=== PATIENT | male | born 1995 | race Caucasian/White ===

== ENCOUNTER 2017-08-27 22:02 | Inpatient (IN) | payer SELFPAY ==
[~2017-08-27] VITALS: Ht 188 cm; Wt 156.6 kg
--- NOTE | ~2017-08-27 | PR ---
[place], [place] PROGRESS NOTE NAME: [facility]ES [facility]: [id number] UNIT #: [id number] ROOM: 404 DOCTOR: KARELY LY,DECEMBER BIRTHDATE: [birth year] DOS: SUBJECTIVE: The patient is being followed for possibly a viral exanthem, fevers, rash. He also had dysuria. His UA had some pyuria, but the urine culture is negative. Blood cultures are negative. His STD workup is pending. His temps have significantly improved. His max has been 99.7 in the last 24 hours. He is alert and oriented, feeling well. The rash has significantly improved from yesterday. Denies any nausea, vomiting or diarrhea. No pain. No cough or shortness of breath. His chest x-ray is clear. LABORATORY DATA: Show WBC is 9.3, platelets 248. BUN 10, creatinine 0.7, AST 41, ALT 126. CURRENT MEDICATIONS: Include Rocephin, Motrin, vitamin D, Lovenox, Restoril, Tylenol, milk of mag. PHYSICAL EXAMINATION: VITAL SIGNS: Temperature 99.7, pulse 98, respirations 18, BP 142/85. GENERAL: A 22-year-old obese male, in no acute distress. HEAD, EYES, EARS, NOSE AND THROAT: Normocephalic. No thrush. LUNGS: Clear to auscultation bilaterally. Respirations even and unlabored. HEART: Regular rhythm. No murmur appreciated. ABDOMEN: Soft, nontender. EXTREMITIES: No edema or deformity. SKIN: Rash has significantly improved. It was nonpruritic. ASSESSMENT: I would suspect viral syndrome given his lab work, elevated LFTs, rash and persistent fevers. He has significantly improved. His LFTs are improving. His blood cultures are negative. Fevers are improving. Rash is improving and he can be discharged. We are going to fashion him off with doxycycline due to his complaints of dysuria in the case of possible sexually transmitted disease. His workup for gonorrhea, chlamydia, his titers for Gabriella-Waterman, mycoplasma are pending. I did advise him he could follow up in 1-2 weeks regarding final results of his workup. His human immunodeficiency virus and hepatitis were negative. I also gave him contact information if he goes home and has any issues with recurrence of fevers, etc. DECEMBER MALACHI CALI [place], [place] PROGRESS NOTE NAME: RADHA CACERES UNIT #: [id number] ROOM: 404 DOCTOR: KARELY LY,DECEMBER BIRTHDATE: [birth year] LIZA DIXON MD CM:PNREGGIE 07 19 KARELY LY 09/01/17 2448 interface
--- NOTE | ~2017-08-27 | PR ---
[place], [place] PROGRESS NOTE NAME: RADHA CACERES UNIT #: [id number] ROOM: 404 DOCTOR: KARELY LY,DECEMBER BIRTHDATE: [birth year] DOS: 08/30/2017 SUBJECTIVE: The patient continues to run fevers. He was 101.8 yesterday afternoon, although they are trending down. He was 99.6 last night. His hepatitis and HIV are negative. He does still have little occasional burning with urination at the end of urination, but that has improved. He has no penile discharge, no pain anywhere else currently. He does have a systemic rash which he states he had for approximately 3 days prior to admission that he states started with the fevers. He have little nausea, no emesis, no diarrhea. No pleuritis. No cough or shortness of breath. No joint pain or swelling. No sore throat. No headache currently, though he did have one before he came in. States his family or girlfriend have not been sick. Further review of systems is unremarkable. LABORATORY DATA: WBCs 10.9, platelets 196, sed rate of 60, BUN 8, creatinine 0.78, AST 46, ALT 220. CRP 9.11. HIV is nonreactive. Hepatitis is negative. Chlamydia, gonorrhea and Trichomonas are negative. CT of his abdomen and pelvis was unremarkable other than for fatty liver. Blood and urine cultures are negative. His UA had bilirubin and WBC 16-20, but leukocyte esterase only trace, negative for nitrites. CURRENT MEDICATIONS: Include Rocephin, he is status post a dose of Zithromax, Motrin, vitamin D, Lovenox, Restoril, Zofran, milk of mag, Dulcolax. PHYSICAL EXAMINATION: VITAL SIGNS: Temperature 99.6, pulse 102, respirations 18, BP 136/58. GENERAL: A 22-year-old obese male in no acute distress, nontoxic in appearance. HEAD, EYES, EARS, NOSE AND THROAT: Normocephalic, no thrush. No cervical lymphadenopathy. NECK: Supple. LUNGS: Clear to auscultation bilaterally. Respirations are even and unlabored. HEART: Regular rhythm. No murmur appreciated. ABDOMEN: Soft, obese, nontender. GENITALIA: Unremarkable. No discharge, swelling or erythema. Has a little tinea of the inguinal folds. EXTREMITIES: No edema or deformity. SKIN: Warm and dry. Does have faint pink rash over all extremities and abdomen, nonpruritic. ASSESSMENT: Fever and rash and transaminitis in a young male with urinary symptoms, not very impressive urinalysis. He currently is receiving Rocephin. He is status post Zithromax. PLAN: We will continue the Rocephin for now. Follow up on the rest of his cultures and workup and check a mono spot. After reviewing the chart and labs, I agree with the above plans as described. We will follow the patient up clinically and adjust accordingly. [place], [place] PROGRESS NOTE NAME: RADHA CACERES UNIT #: [id number] ROOM: 404 DOCTOR: KARELY LYDECEMBER BIRTHDATE: [birth year] JANEY CALI CNP CAPO BEE DO CM:PNREGGIE [id number] JANEY KARELY LY 08/31/17 1009 interface
--- NOTE | ~2017-08-27 | PR ---
[place], [place] PROGRESS NOTE NAME: [facility] [id number] UNIT #: [id number] ROOM: 404 DOCTOR: KARELY LY,DECEMBER BIRTHDATE: [birth year] DOS: SUBJECTIVE: The patient is being followed for fever. His dysuria has completely resolved. He continues to run intermittent low-grade temps up to 100.2 and 100.9. He has systemic rash which he states he hurts if anyone presses on it, but it is nonpruritic. He remains on Rocephin for possible STD. His workup for Neisseria and chlamydia is pending as is his RPR. He does have elevated transaminases, which are improving. He had severe hepatic steatosis on his CT of the abdomen and pelvis. White count is 10. Blood cultures and urine cultures negative. CURRENT MEDICATIONS: Include Rocephin, Motrin, vitamin D, Lovenox, Restoril, Zofran. LABORATORY DATA: Hemoglobin 10.5, platelets 235. BUN 10, creatinine 0.84. AST 31, ALT 145. No nausea, vomiting or diarrhea. He does also have some headache, but the fevers, which has improved. He is complaining of generalized achiness. I did discuss with the patient regarding his sexual habits. He does masturbate using a toy which he states he cleans every time with antibacterial and he rinses well and does not use any other possible chemical irritants that could contribute to his dysuria. PHYSICAL EXAMINATION: VITAL SIGNS: Temperature 99.5, pulse 96, respirations 18, BP 135/68. GENERAL: A 22-year-old obese male, in no acute distress, nontoxic in appearance. HEAD, EYES, EARS, NOSE AND THROAT: Normocephalic. No thrush. NECK: No cervical lymphadenopathy. Neck is supple. LUNGS: Clear to auscultation bilaterally. Respirations even and unlabored. HEART: Regular rhythm. No murmur appreciated. ABDOMEN: Soft, mild generalized tenderness, positive bowel sounds. EXTREMITIES: No edema or deformity. SKIN: Warm, dry, flushed. He does have an erythematous rash over upper and lower extremities, nonpleuritic ASSESSMENT: Fever, accompanied by dysuria, dysuria has resolved. Temps are more low grade, possibly viral exanthem with fever versus sexually transmitted disease. Gonorrhea, chlamydia and RPR are pending. I would also check a respiratory viral panel. He does have a little upper airway congestion and he complains of generalized myalgias. We will also check an influenza screen IgM for CMV, mycoplasma. Case was discussed with Dr. Liza Dixon. We will also check Gabriella-Waterman, continue the Rocephin for now. ADDENDUM We agree with the above plans as described above. We will follow the patient up clinically and adjust accordingly. [place], [place] PROGRESS NOTE NAME: RADHA CACERES UNIT #: [id number] ROOM: 404 DOCTOR: KARELY LYDECEMBER BIRTHDATE: [birth year] DECEMBER MALACHI CALI LIZA DIXON MD CM:PNREGGIE [id number] DECEMBER KARELY LY 09/01/17 0148 interface
[2017-08-27 22:18] VITALS: BP 144/78
[2017-08-27 22:49] LABS: BILIRUBIN 2+ (NEGATIVE); BLOOD NEGATIVE (NEGATIVE); CLARITY SL CLOUDY (CLEAR); COLOR ORANGE (YELLOW); GLUCOSE NEGATIVE (NEGATIVE); KETONE 3+ (NEGATIVE); NITRITE NEGATIVE (NEGATIVE); PH 5.5 (5.0-9.0); SPECIFIC GRAVITY 1.025 (1.005-1.030); UROBILINOGEN >= 8.0 E.U./dl (0.2-1.0)
[2017-08-27 22:55] LABS: LEUKO ESTERASE TRACE (NEGATIVE)
[2017-08-27 22:56] LABS: BACTERIA 1+; MUCOUS 2+
[2017-08-27 22:57] LABS: WBC 16-20 wbc/hpf (0-5)
[2017-08-27 23:27] LABS: BASO % 0.4 % (0.0-1.0); EOS # 0.2 10*3/uL (0.0-0.4); EOS % 1.9 % (1.0-4.0); HEMATOCRIT 39.7 % (42.0-52.0); HEMOGLOBIN 13.6 g/dl (14.0-18.0); LYMPH # 1.1 10*3/uL (1.3-4.4); LYMPH % 10.5 % (27.0-41.0); MEAN CELL VOLUME 85.2 fl (80.0-94.0); MEAN CORPUSCULAR HGB 29.2 pg (27.0-31.0); MEAN CORPUSCULAR HGB CONC 34.3 g/dl (33.0-37.0); MONO # 0.8 10*3/uL (0.1-1.0); NEUT # 8.5 10*3/uL (2.3-7.9); PLATELET COUNT AUTOMATED 223 10*3/uL (130-400); RED BLOOD COUNT 4.66 10*6/uL (4.50-5.90); WHITE BLOOD COUNT 10.6 10*3/uL (4.8-10.8)
--- NOTE | 2017-08-27 23:31 | NUR ---
PT STATES THAT NO "CILLIN" MEDICATION ARE EFFECTIVE FOR HIM. DR. MANCIA NOTIFIED.
[2017-08-27 23:42] LABS: ALBUMIN 3.8 gm/dl (3.1-4.5); ALKALINE PHOSPHATASE 108 U/L (45-117); BUN 8 mg/dl (7-24); CHLORIDE 101 mmol/L (98-107); CREATININE 0.93 mg/dL (0.70-1.30); POTASSIUM 3.1 mmol/L (3.5-5.1); SGOT/AST 207 IU/L (3-35); SGPT/ALT 502 U/L (12-78); SODIUM 137 mmol/L (136-145); TOTAL PROTEIN 7.6 gm/dL (6.4-8.2)
[2017-08-28 00:10] VITALS: BP 132/75
[2017-08-28 01:05] VITALS: BP 111/92
--- NOTE | 2017-08-28 01:05 | NUR ---
Time: 104 A 22 year old MALE admitted to 4E under services of CAPO WEBBER DO. Pt. arrived via stretcher from ER. Chief complaint: PAINFUL URINATION. MANJINDER MCDANIEL
[2017-08-28 07:24] LABS: BASO % 0.4 % (0.0-1.0); EOS # 0.3 10*3/uL (0.0-0.4); EOS % 2.9 % (1.0-4.0); HEMATOCRIT 37.4 % (42.0-52.0); HEMOGLOBIN 12.9 g/dl (14.0-18.0); LYMPH # 0.7 10*3/uL (1.3-4.4); MEAN CELL VOLUME 85.2 fl (80.0-94.0); MEAN CORPUSCULAR HGB 29.4 pg (27.0-31.0); MEAN CORPUSCULAR HGB CONC 34.5 g/dl (33.0-37.0); MEAN PLATELET VOLUME 10.3 fl (9.6-12.3); MONO # 0.6 10*3/uL (0.1-1.0); MONO % 7.3 % (3.0-9.0); NEUT # 6.9 10*3/uL (2.3-7.9); NEUT % 81.2 % (47.0-73.0); PLATELET COUNT AUTOMATED 178 10*3/uL (130-400); RED BLOOD COUNT 4.39 10*6/uL (4.50-5.90); WHITE BLOOD COUNT 8.5 10*3/uL (4.8-10.8)
[2017-08-28 07:30] VITALS: BP 128/70
--- NOTE | 2017-08-28 07:45 | NUR ---
ASSESSMENT COMPLETED AND DOCUMENTED.PT SITTING IN BED EATING BREAKFAST. TYLENOL ADMINISTERED FOR FEVER 100.1 MIKE STORM SPNJDRC
[2017-08-28 07:46] LABS: CHLORIDE 106 mmol/L (98-107); POTASSIUM 3.2 mmol/L (3.5-5.1); SODIUM 139 mmol/L (136-145)
[2017-08-28 07:49] LABS: INTERNATIONAL NORM RATIO 1.1 (2.0-3.5)
[2017-08-28 07:57] LABS: ALKALINE PHOSPHATASE 93 U/L (45-117); BUN 6 mg/dl (7-24); CHOLESTEROL 124 mg/dL (<200); CREATININE 0.75 mg/dL (0.70-1.30); HDL CHOLESTEROL 32 mg/dl (40-60); LDL CHOLESTEROL 70 mg/dL (9-159); PHOSPHOROUS 2.3 mg/dL (2.5-4.9); SGOT/AST 147 IU/L (3-35); SGPT/ALT 409 U/L (12-78); TOTAL PROTEIN 6.4 gm/dL (6.4-8.2); TRIGLYCERIDES 111 mg/dl (<150); VLDL CHOLESTEROL 22 mg/dL (6-40)
--- NOTE | 2017-08-28 08:30 | NUR ---
Airplane Pilot Supervisor in to talk to patient. Patient states lives at home with a co-worker. There are 12 steps in the home. Physician: no family physician [facility]acy: [facility] Home health services: none Patient's level of ADLs: INDEPENDENT Patient has working utilities: yes DME: none Follow-up physician's appointment after d/c: will be made by hospitalist nurse director upon discharge Does patient want to access PORTAL?: no Discharge plan discussed with patient. He lives in [place] with a co-worker. He is independent in his ADLs and ambulation. Denies any home needs at this time. When medically stable he will be discharged to home. HALEY EGAN
[2017-08-28 08:55] LABS: VITAMIN D, 25-HYDROXY 12.5 ng/mL (30-100)
--- NOTE | 2017-08-28 08:55 | NUR ---
IV ZOFRAN ADMINISTERED PER INSTRUCTOR FOR NAUSEA. NO EMESIS MIKE CARSONNJDRCSantosh
--- NOTE | 2017-08-28 09:30 | NUR ---
PT IS SITTING UOP IN BED WATCHIMNG TV. PT REPORTED 2 MORE EPISODES OF DIARRHEA, LIQUID, BANDAR CARSONNJDRCSantosh
[2017-08-28 11:45] VITALS: BP 140/72
--- NOTE | 2017-08-28 11:45 | NUR ---
PT LAYING IN BED TALKING TO VISITOR. NO COMPLAINTS AT THIS TIME. MIKE STORM SPNJDRC
--- NOTE | 2017-08-28 12:55 | NUR ---
PT LAYING IN BED. REPORT GIVEN TO RAYMUNDO MEDINA
--- NOTE | 2017-08-28 15:58 | NUR ---
GIVEN PRN TYLENOL FOR FEVER AND HEADACHE
[2017-08-28 16:00] VITALS: BP 152/74
[2017-08-28 20:00] VITALS: BP 129/64
--- NOTE | 2017-08-28 20:05 | NUR ---
PT GIVEN FOFRAN FOR NAUSEA. [facility]
[2017-08-29] VITALS: BP 115/60
[2017-08-29 06:47] LABS: BASO % 0.4 % (0.0-1.0); EOS # 0.3 10*3/uL (0.0-0.4); HEMATOCRIT 37.2 % (42.0-52.0); HEMOGLOBIN 12.9 g/dl (14.0-18.0); LYMPH # 0.6 10*3/uL (1.3-4.4); MEAN CELL VOLUME 86.9 fl (80.0-94.0); MEAN CORPUSCULAR HGB 30.1 pg (27.0-31.0); MEAN CORPUSCULAR HGB CONC 34.7 g/dl (33.0-37.0); MEAN PLATELET VOLUME 10.4 fl (9.6-12.3); MONO # 0.7 10*3/uL (0.1-1.0); MONO % 7.2 % (3.0-9.0); NEUT # 7.4 10*3/uL (2.3-7.9); NEUT % 81.7 % (47.0-73.0); PLATELET COUNT AUTOMATED 194 10*3/uL (130-400); RED BLOOD COUNT 4.28 10*6/uL (4.50-5.90); RED CELL DISTRI WIDTH 12.1 % (0-14.5); WHITE BLOOD COUNT 9.1 10*3/uL (4.8-10.8)
[2017-08-29 07:05] LABS: ALBUMIN 2.9 gm/dl (3.1-4.5); ALKALINE PHOSPHATASE 91 U/L (45-117); BUN 4 mg/dl (7-24); CHLORIDE 107 mmol/L (98-107); CREATININE 0.78 mg/dL (0.70-1.30); POTASSIUM 3.3 mmol/L (3.5-5.1); SGOT/AST 88 IU/L (3-35); SGPT/ALT 315 U/L (12-78); SODIUM 140 mmol/L (136-145); TOTAL PROTEIN 6.6 gm/dL (6.4-8.2)
[2017-08-29 08:00] VITALS: BP 140/74
--- NOTE | 2017-08-29 08:00 | NUR ---
Geology Instructor in to see patient. No new needs or request at this time. When medically stable he will be discharged to home.
--- NOTE | 2017-08-29 08:10 | NUR ---
PT RESTING IN BED, NO DISTRESS NOTED. PT STATES HIS URINARY FREQUENCY HAS DECREASED, BUT STATES HE IS STILL HAVING SOME PAIN AFTER URINATION, STATES URINE COLOR IS NOW CLEAR. PT DENIES ANY NEEDS FOR PAIN MEDICATION AT THIS TIME. CALL LIGHT WITHIN REACH.
[2017-08-29 08:11] LABS: HEPATITIS B SURFACE AG Negative (Negative); HEPATITIS C VIRUS ANTIBODY <0.1 s/co (0.0-0.9)
--- NOTE | 2017-08-29 11:24 | NUR ---
DR HARDING'S OFFICE NOTIFIED OF NEW CONSULT.
[2017-08-29 12:00] VITALS: BP 109/50
--- NOTE | 2017-08-29 12:47 | NUR ---
MEDICATED WITH MOTRIN FOR TEMP OF 101.8. WILL MONITOR FOR EFFECTIVENESS.
--- NOTE | 2017-08-29 14:42 | NUR ---
PT'S TEMP 99.9,MOTRIN MILDLY EFFECTIVE FOR FEVER RELIEF. WILL CONTINUE TO MONITOR.
--- NOTE | 2017-08-29 15:11 | NUR ---
SPOKE WITH DR WEBSTER REGARDING CLARIFICATION IF PT IS TO BE MONITORED. STATES YES PT IS TO BE MONITORED.
--- NOTE | 2017-08-29 15:27 | NUR ---
PT PLACED ON MONITOR. PT CONTENT, RESPIRATIONS EASY. HR 104
[2017-08-29 16:14] VITALS: BP 133/65
[2017-08-29 19:55] VITALS: BP 122/62
[2017-08-29 21:09] LABS: GONOCOCCUS BY NAA Negative (Negative)
--- NOTE | 2017-08-29 23:00 | NUR ---
TOOK OVER CARE OF PT AT THIS TIME. PT RESTING IN BED, RESPIRATIONS EASY AND UNLABORED. HEART RATE 95 PER CM. NO S/S OF PAIN OR DISTRESS.
[2017-08-30] VITALS: BP 136/58
--- NOTE | 2017-08-30 00:54 | NUR ---
URINE COLLECTED AND SENT TO LAB PER PHYSICIAN ORDER.
--- NOTE | 2017-08-30 04:00 | NUR ---
PT NOT AWAKENED PER POLICY. RESPIRATIONS EASY. HEART RATE NSR AND WNL ON CM. NO S/S OF PAIN OR DISTRESS. ALL SAFETY MEASURES IN PLACE.
[2017-08-30 06:40] LABS: BASO # 0.1 10*3/uL (0.0-0.1); BASO % 0.5 % (0.0-1.0); EOS # 0.5 10*3/uL (0.0-0.4); EOS % 4.1 % (1.0-4.0); HEMATOCRIT 38.6 % (42.0-52.0); HEMOGLOBIN 12.9 g/dl (14.0-18.0); LYMPH # 0.7 10*3/uL (1.3-4.4); LYMPH % 6.1 % (27.0-41.0); MEAN CELL VOLUME 86.9 fl (80.0-94.0); MEAN CORPUSCULAR HGB 29.1 pg (27.0-31.0); MEAN CORPUSCULAR HGB CONC 33.4 g/dl (33.0-37.0); MONO # 0.6 10*3/uL (0.1-1.0); MONO % 5.6 % (3.0-9.0); NEUT # 9.1 10*3/uL (2.3-7.9); NEUT % 83.4 % (47.0-73.0); PLATELET COUNT AUTOMATED 196 10*3/uL (130-400); RED BLOOD COUNT 4.44 10*6/uL (4.50-5.90); RED CELL DISTRI WIDTH 12.3 % (0-14.5); WHITE BLOOD COUNT 10.9 10*3/uL (4.8-10.8)
--- NOTE | 2017-08-30 06:47 | NUR ---
PT LYING IN BED, RESTING. EASILY AROUSED. DENIES ANY PAIN OR DISCOMFORT. RESPIRATIONS EASY AND UNLABORED. NO S/S OF PAIN OR DISTRESS.
[2017-08-30 07:11] LABS: ALBUMIN 2.9 gm/dl (3.1-4.5); ALKALINE PHOSPHATASE 89 U/L (45-117); BUN 8 mg/dl (7-24); CHLORIDE 107 mmol/L (98-107); CREATININE 0.78 mg/dL (0.70-1.30); LIPASE 287 U/L (73-393); PHOSPHOROUS 3.3 mg/dL (2.5-4.9); POTASSIUM 3.6 mmol/L (3.5-5.1); SGOT/AST 46 IU/L (3-35); SGPT/ALT 220 U/L (12-78); SODIUM 140 mmol/L (136-145); TOTAL PROTEIN 6.7 gm/dL (6.4-8.2)
[2017-08-30 08:00] VITALS: BP 114/60
--- NOTE | 2017-08-30 08:00 | NUR ---
Conference Center Coordinator in to see patient. Denies any home needs at this time. When medically stable he will be discharged to home.
[2017-08-30 08:10] LABS: HIV 1+2 AB + HIV1 P24 AG Non Reactive (Non Reactive)
--- NOTE | 2017-08-30 08:22 | NUR ---
Called into pt's room, pt complaining of pain in his limbs, states swelling in his hands, and states difficulty moving them. Asked pt if he can move them, he is able to move limbs, but he is having pain with movement. There's notable swelling in both hands. Call placed to Dr Blanco regarding pt's complaints. States they will be around to see pt.
--- NOTE | 2017-08-30 08:40 | NUR ---
SPOKE WITH DR WEBSTER REGARDING SHIFT DIRECTORS RECCOMENDATION FOR CHECKING PT'S ANGIE FLOYD VIRUS TITRE.
--- NOTE | 2017-08-30 08:44 | NUR ---
MEDICATED WITH MOTRIN FOR PT'S COMPLAINTS OF LIMB PAIN. WILL MONITOR FOR EFFECTIVENESS.
--- NOTE | 2017-08-30 10:04 | NUR ---
UPDATED DECEMBER FROM ID REGARDING PT'S COMPLAINTS AND LAB RESULTS.
[2017-08-30 12:00] VITALS: BP 133/60
--- NOTE | 2017-08-30 14:00 | NUR ---
PT RESTING IN BED, NO DISTRESS NOTED. PT DENIES ANY COMPLAINTS AT THIS TIME. CALL LIGHT WITHIN REACH.
[2017-08-30 16:00] VITALS: BP 133/54
--- NOTE | 2017-08-30 16:55 | NUR ---
MEDICATED WITH MOTRIN PER PRN ORDER FOR TEMP OF 101.8. WILL REASSESS FOR EFFECTIVENESS.
--- NOTE | 2017-08-30 18:08 | NUR ---
RECHECKED PT'S TEMP AT THIS TIME, 100.9 MOTRIN EFFECTIVE.
--- NOTE | 2017-08-30 20:15 | NUR ---
PATIENT RESTING QUIETLY IN BED. NO VOICED COMPLAINTS AT THIS TIME. PATIENT HAS A FULL BODY RASH WHICH OCCASIONAL HURTS HIS BLE WHEN YOU TOUCH IT. HE DENES ANY ITCHING AND STATES IT HAS BEEN PRESENT ON ADMISSION AND HAS NOT GOT ANY BETTER. HE IS PLEASNT/COOPERATIVE WITH CARE. SEE ASSESSMENT. WILL CONTINUE TO MONITOR.
[2017-08-30 20:26] VITALS: BP 113/53
[2017-08-31] VITALS: BP 119/56
--- NOTE | 2017-08-31 03:26 | NUR ---
PATIENT SLEEPING, NO SXS OF DISTRESS, CALL LIGHT IS IN REACH. WILL MONITOR.
--- NOTE | 2017-08-31 03:30 | NUR ---
PATIENT STATES EARLIER MOTRIN WAS EFFECTIVE IN DECREASING HIS GENERALIZED PAIN. WILL CONTINUE TO MONITOR
--- NOTE | 2017-08-31 03:33 | NUR ---
PATIENT MEDICATED WITH PRN MOTRIN ORDERED FOR C/O A HEADACHE AND GENERALIZED BODY PAIN RATED AN 7/10.
[2017-08-31 07:06] LABS: BASO # 0.1 10*3/uL (0.0-0.1); BASO % 0.8 % (0.0-1.0); EOS # 0.5 10*3/uL (0.0-0.4); EOS % 4.3 % (1.0-4.0); HEMATOCRIT 39.2 % (42.0-52.0); HEMOGLOBIN 13.3 g/dl (14.0-18.0); LYMPH # 0.9 10*3/uL (1.3-4.4); MEAN CELL VOLUME 88.1 fl (80.0-94.0); MEAN CORPUSCULAR HGB 29.9 pg (27.0-31.0); MEAN CORPUSCULAR HGB CONC 33.9 g/dl (33.0-37.0); MEAN PLATELET VOLUME 10.3 fl (9.6-12.3); MONO # 0.6 10*3/uL (0.1-1.0); MONO % 5.7 % (3.0-9.0); NEUT # 8.3 10*3/uL (2.3-7.9); NEUT % 79.6 % (47.0-73.0); PLATELET COUNT AUTOMATED 235 10*3/uL (130-400); RED BLOOD COUNT 4.45 10*6/uL (4.50-5.90); RED CELL DISTRI WIDTH 12.1 % (0-14.5); WHITE BLOOD COUNT 10.5 10*3/uL (4.8-10.8)
[2017-08-31 07:37] LABS: ALBUMIN 2.8 gm/dl (3.1-4.5); BUN 10 mg/dl (7-24); CHLORIDE 104 mmol/L (98-107); CREATININE 0.84 mg/dL (0.70-1.30); POTASSIUM 3.5 mmol/L (3.5-5.1); SGOT/AST 31 IU/L (3-35); SGPT/ALT 145 U/L (12-78); SODIUM 137 mmol/L (136-145); TOTAL PROTEIN 6.9 gm/dL (6.4-8.2)
[2017-08-31 07:38] LABS: ALKALINE PHOSPHATASE 79 U/L (45-117)
[2017-08-31 08:00] VITALS: BP 119/60
--- NOTE | 2017-08-31 08:00 | NUR ---
IN BED AWAKE ALERT AND ORIENTED X3, PT REQUESTED TO SHOWER. WILL ASK NO S/S OF DISTRESS. CALL LIGHT IN REACH. LABS REVIEWED.
--- NOTE | 2017-08-31 08:30 | NUR ---
PER DR COULTER PT MAY REMOVE SOFT SUGAR SUPERVISOR TO SHOWER.
[2017-08-31 12:00] VITALS: BP 135/68
--- NOTE | 2017-08-31 15:58 | NUR ---
PRN MOTRIN GIVEN AT THIS TIME FOR TEMP OF 100.3. WILL CONTINUE TO MONITOR.
[2017-08-31 16:00] VITALS: BP 118/55; BP 163/71
--- NOTE | 2017-08-31 17:26 | NUR ---
PRN MOTRIN WAS EFFECTIVE PER PT. HE STATES THAT HE FEELS BETTER AND CHILLS ARE NOW GONE.
--- NOTE | 2017-08-31 19:52 | NUR ---
PATIENT LYING IN BED, NO VOICED COMPLAINTS. STATES HIS PAIN IS MINIMAL AT THIS TIME. SEE ASSESSMENT. CALL LIGHT IS IN REACH. WILL MONITOR.
[2017-08-31 20:00] VITALS: BP 128/74
--- NOTE | 2017-08-31 20:35 | NUR ---
PATIENT TAKEN TO XRAY AT THIS TIME
--- NOTE | 2017-08-31 20:45 | NUR ---
PATIENT RETURNED FROM XRAY.
[2017-09-01] VITALS: BP 118/53
--- NOTE | 2017-09-01 00:16 | NUR ---
MEDICATED WITH PRN MOTRIN ORDERED FOR C/O GENERALIZED BODY PAIN RATED 7/10
--- NOTE | 2017-09-01 01:15 | NUR ---
EARLIER MOTRIN APPEARS EFFECTIVE. PATIENT SLEEPING, NO SXS OF DISTRESS.
--- NOTE | 2017-09-01 06:36 | NUR ---
SLEPT T/O SHIFT WITH LITTLE COMPLAINTS OF BEING SORE WHEN HE MOVES AROUND. HE WAS MEDICATED FOR THIS AND HAD NO FURTHER COMPLAINTS. RESTING QUIETLY IN BED. NO SXS OF DISTRESS. CALL LIGHT IS IN REACH.
[2017-09-01 06:37] LABS: BASO # 0.1 10*3/uL (0.0-0.1); BASO % 0.9 % (0.0-1.0); EOS # 0.5 10*3/uL (0.0-0.4); EOS % 5.5 % (1.0-4.0); HEMATOCRIT 39.2 % (42.0-52.0); HEMOGLOBIN 13.3 g/dl (14.0-18.0); LYMPH # 1.4 10*3/uL (1.3-4.4); MEAN CELL VOLUME 88.5 fl (80.0-94.0); MEAN CORPUSCULAR HGB CONC 33.9 g/dl (33.0-37.0); MEAN PLATELET VOLUME 10.3 fl (9.6-12.3); MONO # 0.7 10*3/uL (0.1-1.0); MONO % 7.3 % (3.0-9.0); NEUT # 6.6 10*3/uL (2.3-7.9); NEUT % 70.9 % (47.0-73.0); PLATELET COUNT AUTOMATED 248 10*3/uL (130-400); RED BLOOD COUNT 4.43 10*6/uL (4.50-5.90); RED CELL DISTRI WIDTH 12.1 % (0-14.5); WHITE BLOOD COUNT 9.3 10*3/uL (4.8-10.8)
[2017-09-01 07:09] LABS: ALBUMIN 2.9 gm/dl (3.1-4.5); CHLORIDE 105 mmol/L (98-107); POTASSIUM 3.6 mmol/L (3.5-5.1); SODIUM 140 mmol/L (136-145)
[2017-09-01 07:13] LABS: ALKALINE PHOSPHATASE 74 U/L (45-117); BUN 10 mg/dl (7-24); CREATININE 0.76 mg/dL (0.70-1.30); SGOT/AST 41 IU/L (3-35); SGPT/ALT 126 U/L (12-78); TOTAL PROTEIN 6.8 gm/dL (6.4-8.2)
[2017-09-01 08:00] VITALS: BP 144/76
[2017-09-01 12:00] VITALS: BP 142/85
--- NOTE | 2017-09-01 14:46 | NUR ---
C/O HEADACHE OF 02/16. MOTRIN GIVEN AT THIS TIME PER REQUEST. WILL CONT TO MONITOR. CALL LIGHT IN REACH.
--- NOTE | 2017-09-01 16:42 | NUR ---
DISCHARGED AT THIS TIME. IV REMOVED AND PRESSURE DRESSING APPLIED. HEART MONITOR RETURNED TO FLOOR. VERBALIZED UNDERSTANDING OF DISCHARGE INSTRUCTIONS.
[2017-09-03 15:07] LABS: EBV NUCLEAR ANTIGEN IGG <18.0 U/mL (0.0-17.9); EPSTEIN-BARR VCA IGG AB <18.0 U/mL (0.0-17.9); EPSTEIN-BARR VCA IGM AB <36.0 U/mL (0.0-35.9)
[2017-09-04 16:10] LABS: MYCOPLASMA PNEUMONIAE IGG <100 U/mL (0-99); MYCOPLASMA PNEUMONIAE IGM <770 U/mL (0-769)
[2017-09-05 00:05] LABS: PARAINFLUENZA 3 CF 1:16 (Neg:<1:8)
== END 2017-09-01 16:52 | disposition home or self-care (01) | DRG 872 ==
LOC: ED 22:02 → 4E 23:58 → EDHOLD 23:58 → 4E 08-28 00:10
PROVIDERS: Family Medicine; Internal Medicine; Internal Medicine Infectious Disease; Nurse Practitioner; Student in an Organized Health Care Education/Training Program; ADMIT Internal Medicine
DX: A41.9 Sepsis, unspecified organism (principal); E66.01 Morbid (severe) obesity due to excess calories; N39.0 Urinary tract infection, site not specified; Z68.41 Body mass index [BMI] 40.0-44.9, adult; E87.6 Hypokalemia; R31.9 Hematuria, unspecified; R74.0 Nonspecific elevation of levels of transaminase and lactic acid dehydrogenase [LDH]; R73.9 Hyperglycemia, unspecified; D64.9 Anemia, unspecified; E55.9 Vitamin D deficiency, unspecified; Z91.040 Latex allergy status

== ENCOUNTER 2018-02-25 02:08 | Emergency (ER) | payer SELFPAY ==
[~2018-02-25] VITALS: Ht 187.9 cm; Wt 154.2 kg
[2018-02-25] MEDS ORDERED: KEFLEX500 M1 PO (03:02)
== END 2018-02-25 03:02 | disposition home or self-care (01) ==
LOC: ED 02:08
DX: J02.9 Acute pharyngitis, unspecified (principal); R73.9 Hyperglycemia, unspecified

== ENCOUNTER 2018-03-04 23:52 | Emergency (ER) | payer SELFPAY ==
[~2018-03-04] VITALS: Ht 187.9 cm; Wt 154.2 kg
[~2018-03-04 23:52] MED LIST: KEFLEX500 M1 PO
[2018-03-05 00:26] LABS: BASO % 0.2 % (0.0-1.0); EOS # 0.1 10*3/uL (0.0-0.4); HEMOGLOBIN 13.8 g/dl (14.0-18.0); LYMPH # 2.9 10*3/uL (1.3-4.4); LYMPH % 33.5 % (27.0-41.0); MEAN CELL VOLUME 86.9 fl (80.0-94.0); MEAN CORPUSCULAR HGB 29.2 pg (27.0-31.0); MEAN CORPUSCULAR HGB CONC 33.7 g/dl (33.0-37.0); MEAN PLATELET VOLUME 9.8 fl (9.6-12.3); MONO # 0.6 10*3/uL (0.1-1.0); MONO % 6.8 % (3.0-9.0); NEUT % 58.3 % (47.0-73.0); PLATELET COUNT AUTOMATED 253 10*3/uL (130-400); RED BLOOD COUNT 4.72 10*6/uL (4.50-5.90); RED CELL DISTRI WIDTH 12.1 % (0-14.5); WHITE BLOOD COUNT 8.6 10*3/uL (4.8-10.8)
[2018-03-05 00:41] LABS: ALKALINE PHOSPHATASE 69 U/L (45-117); BUN 11 mg/dl (7-24); CHLORIDE 112 mmol/L (98-107); CREATININE 0.94 mg/dL (0.70-1.30); POTASSIUM 3.4 mmol/L (3.5-5.1); SGOT/AST 32 IU/L (3-35); SGPT/ALT 96 U/L (12-78); SODIUM 144 mmol/L (136-145); TOTAL PROTEIN 7.6 gm/dL (6.4-8.2)
[2018-03-05] MEDS ORDERED: DELTASONE20 M1 PO (01:21)
[2018-03-05] MEDS ORDERED: ZYRTEC10 MG PO (01:21)
== END 2018-03-05 01:48 | disposition home or self-care (01) ==
LOC: ED 23:52
PROVIDERS: Physician Assistant
DX: J02.9 Acute pharyngitis, unspecified (principal); J06.9 Acute upper respiratory infection, unspecified; Z88.0 Allergy status to penicillin

== ENCOUNTER 2018-03-22 16:21 | Emergency (ER) | payer SELFPAY ==
[~2018-03-22] VITALS: Ht 185.4 cm; Wt 154.2 kg
[~2018-03-22 16:21] MED LIST changes: +DELTASONE20 M1 PO; +ZYRTEC10 MG PO
[2018-03-22 17:03] LABS: BASO % 0.5 % (0.0-1.0); EOS # 0.1 10*3/uL (0.0-0.4); EOS % 1.3 % (1.0-4.0); HEMATOCRIT 43.9 % (42.0-52.0); HEMOGLOBIN 14.7 g/dl (14.0-18.0); LYMPH # 1.8 10*3/uL (1.3-4.4); LYMPH % 22.3 % (27.0-41.0); MEAN CELL VOLUME 87.3 fl (80.0-94.0); MEAN CORPUSCULAR HGB 29.2 pg (27.0-31.0); MEAN CORPUSCULAR HGB CONC 33.5 g/dl (33.0-37.0); MEAN PLATELET VOLUME 9.9 fl (9.6-12.3); MONO # 0.6 10*3/uL (0.1-1.0); MONO % 7.1 % (3.0-9.0); NEUT # 5.5 10*3/uL (2.3-7.9); NEUT % 68.5 % (47.0-73.0); PLATELET COUNT AUTOMATED 234 10*3/uL (130-400); RED BLOOD COUNT 5.03 10*6/uL (4.50-5.90); RED CELL DISTRI WIDTH 12.7 % (0-14.5)
[2018-03-22 17:18] LABS: ALBUMIN 3.9 gm/dl (3.1-4.5); ALKALINE PHOSPHATASE 70 U/L (45-117); BUN 10 mg/dl (7-24); CHLORIDE 107 mmol/L (98-107); CREATININE 0.91 mg/dL (0.70-1.30); POTASSIUM 3.9 mmol/L (3.5-5.1); SGOT/AST 59 IU/L (3-35); SGPT/ALT 141 U/L (12-78); SODIUM 142 mmol/L (136-145); TOTAL PROTEIN 7.3 gm/dL (6.4-8.2)
[2018-03-22] MEDS ORDERED: CLINDAMYCIN HC300 MG PO (18:27)
== END 2018-03-22 18:38 | disposition home or self-care (01) ==
LOC: ED 16:21
PROVIDERS: Physician Assistant
DX: J03.90 Acute tonsillitis, unspecified (principal); Z79.899 Other long term (current) drug therapy; Z88.0 Allergy status to penicillin

== ENCOUNTER 2018-07-11 21:07 | Emergency (ER) | payer SELFPAY ==
[~2018-07-11] VITALS: Ht 187.9 cm; Wt 167.8 kg
[~2018-07-11 21:07] MED LIST changes: +CLINDAMYCIN HC300 MG PO
[2018-07-11 23:04] LABS: HEMATOCRIT 40.9 % (42.0-52.0); HEMOGLOBIN 13.7 g/dl (14.0-18.0); MEAN CELL VOLUME 86.5 fl (80.0-94.0); MEAN CORPUSCULAR HGB CONC 33.5 g/dl (33.0-37.0); MEAN PLATELET VOLUME 9.9 fl (9.6-12.3); PLATELET COUNT AUTOMATED 231 10*3/uL (130-400); RED BLOOD COUNT 4.73 10*6/uL (4.50-5.90); RED CELL DISTRI WIDTH 11.9 % (0-14.5); WHITE BLOOD COUNT 8.5 10*3/uL (4.8-10.8)
[2018-07-11 23:18] LABS: ALBUMIN 3.5 gm/dl (3.1-4.5); ALKALINE PHOSPHATASE 70 U/L (45-117); BUN 10 mg/dl (7-24); CHLORIDE 106 mmol/L (98-107); CREATININE 0.95 mg/dL (0.70-1.30); POTASSIUM 3.7 mmol/L (3.5-5.1); SGOT/AST 83 IU/L (3-35); SGPT/ALT 161 U/L (12-78); SODIUM 139 mmol/L (136-145); TOTAL PROTEIN 7.2 gm/dL (6.4-8.2)
[2018-07-11 23:20] LABS: BILIRUBIN NEGATIVE (NEGATIVE); BLOOD NEGATIVE (NEGATIVE); CLARITY CLEAR (CLEAR); COLOR YELLOW (YELLOW); GLUCOSE NEGATIVE (NEGATIVE); KETONE NEGATIVE (NEGATIVE); LEUKO ESTERASE NEGATIVE (NEGATIVE); NITRITE NEGATIVE (NEGATIVE); PH 5.5 (5.0-9.0); SPECIFIC GRAVITY 1.025 (1.005-1.030); UROBILINOGEN 0.2 E.U./dl (0.2-1.0)
[2018-07-11 23:31] LABS: ATYPICAL LYMPHS 6 % (0-0); BASOPHILS 1 % (0-1); MICROCYTOSIS SLIGHT; PLATELET SUFFICIENCY NORMAL (NORMAL); TOTAL CELLS COUNTED 100 #CELLS
[2018-07-11 23:34] LABS: RBC 0-2 rbc/hpf (0-2); WBC 0-2 wbc/hpf (0-5)
== END 2018-07-12 00:07 | disposition home or self-care (01) ==
LOC: ED 21:07
PROVIDERS: Emergency Medicine
DX: S09.90XA Unspecified injury of head, initial encounter (principal); B34.9 Viral infection, unspecified; E66.01 Morbid (severe) obesity due to excess calories; F17.200 Nicotine dependence, unspecified, uncomplicated; Z88.0 Allergy status to penicillin; W22.8XXA Striking against or struck by other objects, initial encounter; Y93.89 Activity, other specified; Y92.89 Other specified places as the place of occurrence of the external cause; Y99.8 Other external cause status

== ENCOUNTER 2018-08-01 21:30 | Emergency (ER) | payer SELFPAY ==
[~2018-08-01] VITALS: Ht 187.9 cm; Wt 167.8 kg
[2018-08-01] MEDS ORDERED: Motrin,Rufen800 MG PO (22:19)
[2018-08-01] MEDS ORDERED: CLINDAMYCIN HC300 MG PO (22:19)
== END 2018-08-01 22:30 | disposition home or self-care (01) ==
LOC: ED 21:30
DX: K04.01 Reversible pulpitis (principal); K02.9 Dental caries, unspecified; F17.200 Nicotine dependence, unspecified, uncomplicated; Z88.0 Allergy status to penicillin

== ENCOUNTER 2018-10-08 01:40 | Emergency (ER) | payer SELFPAY ==
[~2018-10-08] VITALS: Ht 187.9 cm; Wt 161.0 kg
[~2018-10-08 01:40] MED LIST changes: +Motrin,Rufen800 MG PO
[2018-10-08] MEDS ORDERED: IBU800 MG PO (01:50)
[2018-10-08] MEDS ORDERED: CLINDAMYCIN150 MG PO (01:50)
[2018-10-08 02:09] LABS: BILIRUBIN NEGATIVE (NEGATIVE); BLOOD NEGATIVE (NEGATIVE); CLARITY CLEAR (CLEAR); COLOR YELLOW (YELLOW); GLUCOSE 3+ (NEGATIVE); KETONE NEGATIVE (NEGATIVE); LEUKO ESTERASE NEGATIVE (NEGATIVE); NITRITE NEGATIVE (NEGATIVE); UROBILINOGEN 0.2 E.U./dl (0.2-1.0)
[2018-10-08 02:29] LABS: RBC 0-2 rbc/hpf (0-2); WBC 0-2 wbc/hpf (0-5)
== END 2018-10-08 03:02 | disposition home or self-care (01) ==
LOC: ED 01:40
PROVIDERS: Student in an Organized Health Care Education/Training Program
DX: E11.9 Type 2 diabetes mellitus without complications (principal); K02.9 Dental caries, unspecified; E66.01 Morbid (severe) obesity due to excess calories; F17.200 Nicotine dependence, unspecified, uncomplicated; Z88.0 Allergy status to penicillin; Z79.899 Other long term (current) drug therapy; Z79.2 Long term (current) use of antibiotics

== ENCOUNTER 2018-10-29 21:19 | Emergency (ER) | payer SELFPAY ==
[~2018-10-29] VITALS: Ht 187.9 cm; Wt 156.5 kg
--- NOTE | ~2018-10-29 | EKG ---
[place], [place] ELECTROCARDIOGRAM REPORT NAME: RADHA CACERES UNIT #: [id number] ROOM: DOCTOR: EPIPHANY DRAFT REPORT BIRTHDATE: [birth year] [facility] Test Date: 2018-10-29 Test Time: 21:54:16 Pat Name: RADHA CACERES Department: ER Room: Gender: M Painting Technician: Le Wesley : 1995 Requested By: NORM MANCIA Order Number: [id number] Reading MD: Freddy Johnson MD Measurements Intervals [place] Rate: 121 P: 38 MO: 169 QRS: 36 QRSD: 87 T: 26 QT: 305 QTc: 433 Interpretive Statements Sinus tachycardia Baseline wander in lead(s) V2 Electronically Signed On 10-30-2018 2:17:02 PST by Freddy Johnson MD CM:EKGRPT:ELECTROCARDIOGRAM REPORT [id number] NORM GUZMAN DRAFT REPORT NORM MANCIA DO
[~2018-10-29 21:19] MED LIST changes: +CLINDAMYCIN150 MG PO; +IBU800 MG PO
[2018-10-29 21:53] LABS: BASO % 0.3 % (0.0-1.0); EOS % 0.4 % (1.0-4.0); HEMATOCRIT 43.9 % (42.0-52.0); LYMPH % 13.3 % (27.0-41.0); MEAN CELL VOLUME 85.6 fl (80.0-94.0); MEAN CORPUSCULAR HGB 29.2 pg (27.0-31.0); MEAN CORPUSCULAR HGB CONC 34.2 g/dl (33.0-37.0); MEAN PLATELET VOLUME 10.5 fl (9.6-12.3); MONO # 0.5 10*3/uL (0.1-1.0); MONO % 6.7 % (3.0-9.0); NEUT # 6.1 10*3/uL (2.3-7.9); PLATELET COUNT AUTOMATED 233 10*3/uL (130-400); RED BLOOD COUNT 5.13 10*6/uL (4.50-5.90); RED CELL DISTRI WIDTH 12.3 % (0-14.5); WHITE BLOOD COUNT 7.7 10*3/uL (4.8-10.8)
[2018-10-29 22:12] LABS: ALBUMIN 3.7 gm/dl (3.1-4.5); ALKALINE PHOSPHATASE 81 U/L (45-117); BUN 15 mg/dl (7-24); CHLORIDE 106 mmol/L (98-107); CREATININE 0.99 mg/dL (0.70-1.30); POTASSIUM 3.6 mmol/L (3.5-5.1); SGOT/AST 66 IU/L (3-35); SGPT/ALT 108 U/L (12-78); SODIUM 140 mmol/L (136-145); TOTAL PROTEIN 7.4 gm/dL (6.4-8.2)
[2018-10-29 22:13] LABS: TROPONIN I < 0.015 ng/ml (<0.045)
[2018-10-29 22:58] LABS: ACT PARTIAL THROMBO TIME 23.6 SECONDS (20.8-31.5)
== END 2018-10-30 01:31 | disposition home or self-care (01) ==
LOC: ED 21:19
PROVIDERS: Student in an Organized Health Care Education/Training Program
DX: R51 Headache (principal); F17.200 Nicotine dependence, unspecified, uncomplicated; E66.01 Morbid (severe) obesity due to excess calories; E11.9 Type 2 diabetes mellitus without complications; Z88.0 Allergy status to penicillin